=== PATIENT | female | born 1945 | race Two or more races ===

== ENCOUNTER 2021-10-06 21:38 | Inpatient (IN) | payer OTHER ==
[~2021-10-06] VITALS: Ht 152.4 cm; Wt 63.5 kg
[2021-10-06] MEDS ORDERED: AVAPRO150 MG (22:02)
[2021-10-06] MEDS ORDERED: CIPRO (22:03)
[2021-10-06] MEDS ORDERED: ACIDO FOLICO 1 MG. (22:03)
[2021-10-08] MEDS ORDERED: CIPRO100 MG (10:58)
[2021-10-08] MEDS ORDERED: FOLIC ACID1 MG (10:58)
[2021-10-18] MEDS ORDERED: IMODIUM A-D2 M2 PO (13:57)
== END 2021-10-19 00:01 | disposition home or self-care (01) | DRG 330 ==
LOC: ER 21:38 → SURH 10-07 15:50
PROVIDERS: ADMIT Surgery; ATTEND Surgery
PROC: B54DZZZ Ultrasonography of Bilateral Lower Extremity Veins (ICD-10-PCS; 2021-10-07)
PROC: B24BZZZ Ultrasonography of Heart with Aorta (ICD-10-PCS; 2021-10-07)
PROC: BW2110Z Computerized Tomography (CT Scan) of Abdomen and Pelvis using Low Osmolar Contrast, Unenhanced and Enhanced (ICD-10-PCS; 2021-10-07)
PROC: 02HV33Z Insertion of Infusion Device into Superior Vena Cava, Percutaneous Approach (ICD-10-PCS; 2021-10-08)
PROC: BT4JZZZ Ultrasonography of Kidneys and Bladder (ICD-10-PCS; 2021-10-09)
PROC: 0D1L0Z4 Bypass Transverse Colon to Cutaneous, Open Approach (ICD-10-PCS; principal; 2021-10-09 13:00)
PROC: 30243N1 Transfusion of Nonautologous Red Blood Cells into Central Vein, Percutaneous Approach (ICD-10-PCS; 2021-10-15)
DX: K56.699 Other intestinal obstruction unspecified as to partial versus complete obstruction (principal); N17.8 Other acute kidney failure; E87.1 Hypo-osmolality and hyponatremia; N82.3 Fistula of vagina to large intestine; D37.5 Neoplasm of uncertain behavior of rectum; I12.9 Hypertensive chronic kidney disease with stage 1 through stage 4 chronic kidney disease, or unspecified chronic kidney disease; E11.22 Type 2 diabetes mellitus with diabetic chronic kidney disease; N18.9 Chronic kidney disease, unspecified; Z79.4 Long term (current) use of insulin; G20 Parkinson's disease; D63.1 Anemia in chronic kidney disease; Z20.822 Contact with and (suspected) exposure to COVID-19

== ENCOUNTER 2022-04-07 09:42 | Outpatient (CLI) | payer OTHER ==
[~2022-04-07 09:42] MED LIST: ACIDO FOLICO 1 MG.; AVAPRO150 MG; CIPRO; CIPRO100 MG; FOLIC ACID1 MG; IMODIUM A-D2 M2 PO
== END 2022-04-07 15:59 | disposition home or self-care (01) ==
LOC: TOM 09:42
PROVIDERS: ATTEND Internal Medicine Hematology & Oncology
DX: C53.8 Malignant neoplasm of overlapping sites of cervix uteri (principal)
CPT/HCPCS: 71270; 74178; Q9965